=== PATIENT | female | born 1970 | race Caucasian/White ===

== ENCOUNTER 2017-08-02 18:09 | Emergency (ER) | payer OTHER ==
[2017-08-02] MEDS ORDERED: guaiFENesin 100 mg/5 ml Syrup UD PO STA (19:35)
--- NOTE | 2017-08-02 19:38 | C.PDOC ---
History Of Present Illness 47 y/o female presents to the ED for evaluation of cough, congestion, sore throat and subjective fever which began 1 day ago. Patient reports positive sick contact. Otherwise denies nausea, vomiting, abdominal pain. Time Seen by Provider: 08/02/17 19:19 Chief Complaint (Nursing): Cough, Cold, Congestion History Per: Patient History/Exam Limitations: no limitations Onset/Duration Of Symptoms: Hrs Current Symptoms Are (Timing): Still Present Sick Contacts (Context): Friend(s) Associated Symptoms: Fever, Sore Throat, Cough, Nasal Congestion Additional History Per: Patient Past Medical History Reviewed: Historical Data, Nursing Documentation, Vital Signs Vital Signs: Last Vital Signs Temp 101.9 F H 08/02/17 19:48 Pulse 94 H 08/02/17 19:48 Resp 18 08/02/17 19:48 BP 165/90 H 08/02/17 19:48 Pulse Ox 97 08/02/17 19:48 - Medical History PMH: HTN Surgical History: No Surg Hx Family History: States: Unknown Family Hx - Social History Hx Alcohol Use: No Hx Substance Use: No - Immunization History Hx Tetanus Toxoid Vaccination: No Hx Influenza Vaccination: No Hx Pneumococcal Vaccination: No Review Of Systems Constitutional: Positive for: Fever ENT: Positive for: Nose Congestion, Throat Pain Respiratory: Positive for: Cough Gastrointestinal: Negative for: Nausea, Vomiting, Abdominal Pain Physical Exam - Physical Exam Appears: Non-toxic, No Acute Distress Skin: Normal Color, Warm, Dry Head: Atraumatic, Normacephalic Eye(s): bilateral: Normal Inspection Ear(s): Bilateral: Normal Nose: Normal, No Discharge Oral Mucosa: Moist Throat: Erythema (mild), No Exudate Neck: Supple Chest: Symmetrical, No Deformity, No Tenderness Cardiovascular: Rhythm Regular, No Murmur Respiratory: Normal Breath Sounds, No Rales, No Rhonchi, No Wheezing Extremity: Normal ROM, Capillary Refill (less than 2 seconds ) Neurological/Psych: Oriented x3, Normal Speech, Normal Cognition ED Course And Treatment O2 Sat by Pulse Oximetry: 98 (on RA) Pulse Ox Interpretation: Normal Progress Note: Vasotec PO, Robitussin PO, Tylenol PO, and Tamiflu PO administered. Medical Decision Making Medical Decision Making: will treat empirically for influenza (epidemic now) will increase Vasotec dose from 5 mg daily from minimal dose to more effective dose. Disposition Doctor Will See Patient In The: Office Counseled Patient/Family Regarding: Studies Performed, Diagnosis - Disposition Referrals: [facility] [Outside] Disposition: HOME/ ROUTINE Disposition Time: 19:38 Condition: GOOD Additional Instructions: Tamiflu 75 mg twice daily for 5 days- treatment for the Flu Dayquil and Nyquil (or OTC equivalent) liberally for symptomatic relief Symptoms last 11-14 days No work/school until afebrile for 24 hours Hypertension: Increase Vasotec to 20 mg daily from 5 mg daily follow-up in our outpatient Clinic for further eval of your hypertension in 2-3 months. Continue diet and exercise changes. Prescriptions: Enalapril Maleate [Vasotec] 20 mg PO DAILY #30 tab Oseltamivir [Tamiflu] 75 mg PO BID #9 cap Instructions: Influenza (ED), Hypertension (ED) Forms: [facility] (Nauruan), Work Excuse - Clinical Impression Clinical Impression: Influenza-like illness, Hypertension - Scribe Statement The provider has reviewed the documentation as recorded by the Scribe (Huong Snider) Provider Attestation: All medical record entries made by the Scribe were at my direction and personally dictated by me. I have reviewed the chart and agree that the record accurately reflects my personal performance of the history, physical exam, medical decision making, and the department course for this patient. I have also personally directed, reviewed, and agree with the discharge instructions and disposition.
[2017-08-02] MEDS ORDERED: guaiFENesin 100 mg/5 ml Syrup UD ONE (19:44)
[2017-08-02 19:48] VITALS: BP 165/90; PULSE 94; RESP 18; TEMP 101.9
[2017-08-02 22:19] VITALS: O2SAT 98
--- NOTE | 2017-08-04 15:14 | CARD ---
APPROVED REPORT EKG Measurement Heart [id number] CO [id number] <Conclusion> Normal sinus rhythm Possible Left atrial enlargement Abnormal ECG
== END 2017-08-02 20:05 | disposition home or self-care (01) ==
LOC: C.ER 18:09
DX: J11.1 Influenza due to unidentified influenza virus with other respiratory manifestations (principal); I10 Essential (primary) hypertension